=== PATIENT | male | born 2005 | race Caucasian/White ===

== ENCOUNTER 2024-07-15 07:25 | Outpatient (CLI) | payer OTHER, SELFPAY ==
--- NOTE | ~2024-07-15 | US_ITS ---
TESTICULAR ULTRASOUND (Doppler ultrasound interrogation techniques used as needed for this exam.) Ordering provider: Lucio Melara MD History: . Orchalgia . Comparison: None. FINDINGS: TESTICLES: Normal in size. The right measures 4.8X 2.3X 3.2 cm and the left measures 5.1X 2.7 X 3 cm. Normal echogenicity bilaterally without mass lesion. Normal Doppler flow bilaterally. EPIDIDYMIDES: Normal in size. The right measures 0.8 cm and the left 0.9 cm. Normal echogenicity bila terally. Both demonstrate normal Doppler flow. HYDROCELE: Small right. VARICOCELE: None. OTHER ABNORMALITY: None seen. IMPRESSION: Small right hydrocele Otherwise, normal testicular ultrasound. Reviewed, dictated and finalized at location A. IC [employer]ID ELIGIBILITY ASSISTANT
== END 2024-07-15 07:26 | disposition home or self-care (01) ==
PROVIDERS: Visit Provider Urology
DX: N43.3 Hydrocele, unspecified (principal)
CPT/HCPCS: 76870; 93976